=== PATIENT | female | born 1950 | race Hispanic/Latino ===

== ENCOUNTER 2017-09-16 09:19 | Outpatient (CLI) | payer MEDICARE, OTHER | END 2017-09-16 09:20 | disposition home or self-care (01) | LOC: BICMAMMO 09:19 | PROVIDERS: ATTEND Nurse Practitioner | DX: Z12.31 Encounter for screening mammogram for malignant neoplasm of breast (principal); Z13.820 Encounter for screening for osteoporosis; R10.2 Pelvic and perineal pain; N95.9 Unspecified menopausal and perimenopausal disorder; M81.0 Age-related osteoporosis without current pathological fracture | CPT/HCPCS: 76856; 77063; 77067; 77080 ==

== ENCOUNTER 2018-02-22 16:30 | Observation (INO) | payer MEDICARE, OTHER ==
[~2018-02-22 16:30] MED LIST: ISOVUE-370 76%-LOCM 1 ML ONE
[2018-02-22] MEDS ORDERED: Acetaminophen 500 MG TAB ONE (17:37)
[2018-02-22 17:55] LABS: #Basophils 0.1 thou/uL (0.0-0.2); #Eosinphils 0.3 thou/uL (0.0-0.7); #Lymphocytes 4.1 thou/uL (1.20-3.40); #Monocytes 1.3 thou/uL (0.11-0.59); %Basophils 0.4 % (0.0-1.0); %Eosinophils 1.4 % (0.0-10.0); %Lymphocytes 22.1 % (21.0-51.0); %Neutrophils 69.1 % (42.0-75.0); Hemoglobin 14.2 g/dL (12.0-16.0); Mean Corpuscular HGB CONC 35.5 g/dL (32.0-36.0); Mean Corpuscular Hemoglobin 32.1 pg (27.0-31.0); Mean Corpuscular Volume 90.4 fL (78.0-98.0); Mean Platelet Volume 9.7 fL (7.4-10.4); Platelet Count 232 thou/uL (130-400); RBC Distribution Width 12.3 % (11.5-14.5); Red Blood Cell (RBC) Count 4.44 mill/uL (4.20-5.40); White Blood Cell (WBC) Count 18.8 thou/uL (4.8-10.8)
[2018-02-22 18:16] LABS: ALT (SGPT) 9 U/L (8-55); AST (SGOT) 10 U/L (5-34); Albumin 4.2 g/dL (3.4-4.8); Alkaline Phosphatase 109 U/L (40-150); Anion Gap 14 mmol/L (10-20); BUN (Urea Nitrogen) 16 mg/dL (9.8-20.1); Bilirubin, Total 0.8 mg/dL (0.2-1.2); CRP (Inflammatory) 18.07 mg/dL (= or < 0.5); Calc. Creatinine Clearance 0 mL/min (70-130); Calcium 9.5 mg/dL (7.8-10.44); Carbon Dioxide 32 mmol/L (23-31); Chloride 101 mmol/L (98-107); Estimated GFR-MDRD 39; Globulin 3.2 g/dL (2.4-3.5); Glucose 117 mg/dL (80-115); Potassium 3.4 mmol/L (3.5-5.1); Protein, Total 7.4 g/dL (6.0-8.3); Sodium 144 mmol/L (136-145)
[2018-02-22] MEDS ORDERED: Dexamethasone 4 mg/ml Vial ONE (19:08)
[2018-02-22] MEDS ORDERED: Ampicillin/Sulbactam 3 GM in Sodium Chloride 0.9% 100 ML IVPB SCH (19:15)
[2018-02-22] MEDS ORDERED: HYDROcodone/Acetaminophen 5/325 mg Tablet PO PRN ×2 (20:24)
[2018-02-22] MEDS ORDERED: Ondansetron ODT 4 MG TAB SL PRN (20:24)
[2018-02-22] MEDS ORDERED: Ondansetron HCl/PF 4 MG/2 ML Vial IVP PRN (20:24)
[2018-02-22] MEDS ORDERED: Acetaminophen 325 MG TAB PO PRN (20:24)
[2018-02-22] MEDS ORDERED: Amlodipine 10 MG TAB PO SCH (21:15)
[2018-02-22] MEDS ORDERED: Simvastatin 20 MG TAB PO SCH (21:15)
[2018-02-22] MEDS ORDERED: Simvastatin 20 MG TAB PO ONE (21:15)
[2018-02-22 21:33] VITALS: BMI 22.0
[2018-02-23] MEDS: Ampicillin/Sulbactam 3 GM in Sodium Chloride 0.9% 100 ML IVPB SCH ×4 (01:15→20:03)
[2018-02-23] MEDS: Levothyroxine Sodium 75 MCG TAB PO SCH (04:53)
[2018-02-23] MEDS: Hydrochlorothiazide 25 MG TAB PO SCH (07:50)
--- NOTE | 2018-02-23 08:58 | CT ---
CONTRAST ENHANCED CT IMAGES OF SOFT TISSUE NECK 02/22/18 HISTORY: 68-year-old presents with right sided cheek swelling. Contrast enhanced CT images soft tissue neck is obtained. IV and oral contrast was given. The patient has numerous dental caries involving mandible and maxillary regions bilaterally. The right only remaining mandibular molar appears to have an area of lucency along its lateral aspect likely representing area of laterally positioned caries with possible inferiorly extending infection into the right perimandibular soft tissues. Findings compatible with right perimandibular cellulitis . No definite evidence of an abscess is seen. Moderate bilateral proximal ICA atherosclerotic plaques also seen. Some mild submandibular bilateral lymphadenopathy seen. There is also prominent bilateral jugulodigastric lymph nodes and mildly enlarg ed level III, IV as well as Va and Vb lymph node enlargement. IMPRESSION: Right perimandibular area of inflammatory change compatible with cellulitis without evidence of an ob vious abscess. POS: [facility]
--- NOTE | 2018-02-23 17:45 | CON ---
DATE OF CONSULTATION: 02/23/2018 REASON FOR CONSULTATION: Right mandibular inflammatory process. HISTORY OF PRESENT ILLNESS: A 68-year-old with a history of COPD and hypertension, chronic low back pain who has developed an inflammatory process right mandibular region. She had been to the emergenc y room and was admitted with suspicion of a mandibular abscess versus osteomyelitis associated with a periodontal inflammatory process. CT of neck was completed and it showed right perimandibular area of inflammatory change, but no obvious abscess. Currently, she feels much improved with IV ampicilli n sulbactam. No headaches, visual symptoms, no sore throat, odynophagia, dysphagia, no back pain, no dyspnea, cough or sputum production. No abdominal pain or diarrhea. No genitourinary symptoms. No joint symptoms. No neurological complaints. MEDICAL HISTORY: Includes COPD; chronic smoking; hypertension; low back pain, chronic; dyslipidemia; hypothyroidism. PAST SURGICAL HISTORY: None. ALLERGIES: None. CURRENT MEDICATIONS: Unasyn, hydrochlorothiazide, levofloxacin, Zocor, IV fluids. SOCIAL HISTORY: Still smoking, lives with family members. FAMILY HISTORY: Diabetes and hypertension. PHYSICAL EXAMINATION: VITAL SIGNS: T-max 98.3, blood pressure 120/56, pulse 65, respirations 20, O2 sat 95%. SKIN: Not remarkable. No erythema around the right mandibular area. Peripheral IV access. No Fole y catheter. No lymphadenopathy. HEENT: Ocular movements conjugate. Oral cavity a little bit of trismus noted, I was not able to ful ly visualize the contents of her oral cavity, particularly the right mandibular region. From the out side, there is a moderate swelling and moderate tenderness, but no erythema. According to family mem bers and the patient, there has been quite a bit of reduction in the previously noted swelling, right side. NECK: Supple. LUNGS: With symmetric clear breath sounds. HEART: S1, S2, regular rate. No back tenderness. No murmurs. ABDOMEN: Soft, not distended or tender. No ascites. No bladder distention. EXTREMITIES: No joint inflammatory activity. NEUROLOGIC: Nonfocal. LABORATORY DATA: White cell count 18,000, hemoglobin 14, platelets 232. Sodium 144, creatinine 1.36 . Liver profile normal. CRP is 18 and the soft tissue neck CT as noted above. ASSESSMENT: Chronic smoking with right mandibular inflammatory process likely due to periodontal inf lammatory process, may have osteomyelitis. Usual pathogens include the usual periodontal haley inclu ding microaerophilic Streptococci fusobacterium and other anaerobes. Continue Unasyn, switch to Augm entin for discharge planning and referral to a dentist for likely tooth removal. I would continue tr eatment for at least 3 weeks. She may have osteomyelitis to be determined by further imaging studies at the dentist. Could consider calling the dental consultation while she is in the hospital because I am afraid she is not going to have the resources to procure a dentist after discharge planning and this may lead to readmission.
[2018-02-23] MEDS ORDERED: HYDROcodone/Acetaminophen 5/325 mg Tablet PO PRN ×2 (19:12)
[2018-02-23] MEDS ORDERED: Ondansetron ODT 4 MG TAB SL PRN (19:13)
[2018-02-23] MEDS ORDERED: Ondansetron HCl/PF 4 MG/2 ML Vial IVP PRN (19:13)
[2018-02-23] MEDS ORDERED: Acetaminophen 325 MG TAB PO PRN (19:13)
[2018-02-23] MEDS: Amlodipine 10 MG TAB PO SCH (20:02)
[2018-02-23] MEDS: Simvastatin 20 MG TAB PO SCH (20:02)
[2018-02-24] MEDS: Ampicillin/Sulbactam 3 GM in Sodium Chloride 0.9% 100 ML IVPB SCH ×4 (02:31→19:46)
[2018-02-24 04:45] LABS: Anion Gap 11 mmol/L (10-20); BUN (Urea Nitrogen) 18 mg/dL (9.8-20.1); Calc. Creatinine Clearance 50 mL/min (70-130); Calcium 9.1 mg/dL (7.8-10.44); Carbon Dioxide 31 mmol/L (23-31); Chloride 104 mmol/L (98-107); Estimated GFR-MDRD 65; Glucose 139 mg/dL (80-115); Potassium 3.2 mmol/L (3.5-5.1); Sodium 143 mmol/L (136-145)
[2018-02-24] MEDS: Levothyroxine Sodium 75 MCG TAB PO SCH (05:06)
[2018-02-24 05:09] LABS: Band 4 % (5-11); Hemoglobin 12.2 g/dL (12.0-16.0); Lymphocytes 11 % (21-51); MDiff Complete? YES; Mean Corpuscular HGB CONC 34.9 g/dL (32.0-36.0); Mean Corpuscular Hemoglobin 31.6 pg (27.0-31.0); Mean Corpuscular Volume 90.6 fL (78.0-98.0); Mean Platelet Volume 10.1 fL (7.4-10.4); Myelocyte 1 % (0-0); Neutrophil 84 % (42-75); PLT Morphology Comment Appears Adequate; Platelet Count 221 thou/uL (130-400); RBC Distribution Width 12.1 % (11.5-14.5); Red Blood Cell (RBC) Count 3.85 mill/uL (4.20-5.40); White Blood Cell (WBC) Count 20.5 thou/uL (4.8-10.8)
[2018-02-24] MEDS: Hydrochlorothiazide 25 MG TAB PO SCH (09:06)
[2018-02-24] MEDS: Potassium Chloride 20 MEQ TAB PO SCH ×3 (09:47→21:54)
--- NOTE | 2018-02-24 16:06 | HP ---
DATE OF ADMISSION: 02/22/2018 CHIEF COMPLAINT: Swelling right lower jaw area. HISTORY OF PRESENT ILLNESS: Ms. Ferreira is a 68-year-old female with past medical history of hypertension, hyperlipidemia, hypothyroidism, notices swelling which got worse last night and has a lot of pain as well in the same area, but no fever. The patient did not have any nausea, vomiting, and no choking sensation, no shortness of breath, no difficulty swallowing. In the ER , the patient was evaluated and found to have possible cellulitis of right mandibular area from periodontal process. The patient was found to have leukocytosis in the ER, has been started on Unasyn and admitted for further evaluation and management. PAST MEDICAL HISTORY: 1. Hypertension. 2. Hyperlipidemia. 3. Hypothyroidism. 4. COPD. 5. Tobacco abuse. PAST SURGICAL HISTORY: None. CURRENT MEDICATIONS: The patient is on Zocor 20 mg daily, hydrochlorothiazide 25 mg daily, Synthroid 75 mcg q.i.d. ALLERGIES: NKDA. FAMILY HISTORY: Nothing of interest. SOCIAL HISTORY: The patient lives with family. She smokes one pack a day. No history of alcohol intake. REVIEW OF SYSTEMS: Cardiovascular: No chest pain. No shortness of breath. Respiratory: No fever or cough. Gastrointestinal: No nausea, vomiting, or abdominal pain. Genitourinary: No dysuria or hematuria. Central Nervous System: No headache, no dizziness. PHYSICAL EXAMINATION: GENERAL: The patient is alert, awake, oriented x2. VITAL SIGNS: Temperature 98, respiration 20, blood pressure 120/60. HEENT: Head is normocephalic, atraumatic. Pupils equal and reactive to light. Nasopharynx is pale and dry. Hard and soft palate, no lesions. Oral cavity: There is some swelling and redness in the right upper gum area. Right side of the face, there is swelling and also erythema in the right cheek and right mandibular area extending to the right side of the neck. SKIN: Skin turgor decreased. NECK: Supple. No JVD. LUNGS: Bilateral air entry present, no rales, no rhonchi. HEART: S1 and S2 regular. ABDOMEN: Soft. No distention, no tenderness. Normal bowel sounds present. CENTRAL NERVOUS SYSTEM: No focal deficit. LABORATORY DATA AND X-RAY FINDINGS: CBC shows WBC 18.8, hemoglobin 14, hematocrit 40, platelets 232. Metabolic panel: Sodium 144, potassium 3.4, chloride 101, CO2 of 32, creatinine 1.3, glucose 117. C-reactive protein 18. CT scan of the neck showed inflammatory process involving the right mandible Assessment 1. cellulitis,right mandible area and chek 2.periodontitis 3. Hypertension 4. tobacco abuse 5 copd Plan. 1.vitals q 4 hrs 2 activity as tolerated 3.allergies NKDA 4 Unasyn 3 gms IVPB q 6hrs [address] meyer 6 oral surgery consult [facility]
[2018-02-24] MEDS: Simvastatin 20 MG TAB PO SCH (20:17)
[2018-02-24] MEDS: Amlodipine 10 MG TAB PO SCH (20:17)
[2018-02-25] MEDS: Ampicillin/Sulbactam 3 GM in Sodium Chloride 0.9% 100 ML IVPB SCH ×2 (02:31→08:28)
[2018-02-25 04:29] LABS: #Basophils 0.1 thou/uL (0.0-0.2); #Eosinphils 0.1 thou/uL (0.0-0.7); #Lymphocytes 5.7 thou/uL (1.20-3.40); #Monocytes 0.8 thou/uL (0.11-0.59); #Neutrophils 5.7 thou/uL (1.40-6.50); %Basophils 0.6 % (0.0-1.0); %Eosinophils 0.9 % (0.0-10.0); %Lymphocytes 46.1 % (21.0-51.0); %Monocytes 6.6 % (0.0-10.0); %Neutrophils 45.9 % (42.0-75.0); Hemoglobin 12.5 g/dL (12.0-16.0); Mean Corpuscular HGB CONC 33.7 g/dL (32.0-36.0); Mean Corpuscular Hemoglobin 30.9 pg (27.0-31.0); Mean Corpuscular Volume 91.7 fL (78.0-98.0); Mean Platelet Volume 9.6 fL (7.4-10.4); Platelet Count 241 thou/uL (130-400); RBC Distribution Width 12.2 % (11.5-14.5); Red Blood Cell (RBC) Count 4.04 mill/uL (4.20-5.40); White Blood Cell (WBC) Count 12.4 thou/uL (4.8-10.8)
[2018-02-25 04:42] LABS: Anion Gap 12 mmol/L (10-20); BUN (Urea Nitrogen) 18 mg/dL (9.8-20.1); Calc. Creatinine Clearance 52 mL/min (70-130); Calcium 8.7 mg/dL (7.8-10.44); Carbon Dioxide 29 mmol/L (23-31); Chloride 106 mmol/L (98-107); Estimated GFR-MDRD 69; Glucose 107 mg/dL (80-115); Potassium 3.9 mmol/L (3.5-5.1); Sodium 143 mmol/L (136-145)
[2018-02-25] MEDS: Levothyroxine Sodium 75 MCG TAB PO SCH (05:24)
[2018-02-25] MEDS: Hydrochlorothiazide 25 MG TAB PO SCH (08:28)
[2018-02-25 08:49] VITALS: BP 122/59; TEMP 97.9
--- NOTE | 2018-02-26 00:35 | DIS ---
DATE OF ADMISSION: 02/22/2018 DATE OF DISCHARGE: 02/25/2018 ADMITTING DIAGNOSES: 1. Cellulitis right mandibular area and cheek. 2. Periodontitis. 3. Hypertension. 4. Tobacco abuse. 5. Chronic obstructive pulmonary disease by history. 6. Leukocytosis. FINAL DIAGNOSES: 1. Cellulitis, right mandible area improved and periodontitis. 2. Leukocytosis, improved. 3. Hypertension. 4. Tobacco abuse. 5. Chronic obstructive pulmonary disease. BRIEF SUMMARY OF HOSPITAL COURSE: Ms. Ferreira is a 68-year-old female admitted because of right cheek swelling and jaw swelling, started few days prior to admission. The patient was thought to have cellulitis in that area involving the right mandibular area, possible periodontitis. Patient was seen by Dr. Churchill for Infectious Disease, suggested to continue with antibiotic and suggested to do Oral Surgery consult. The patient's Oral Surgery suggested she needs tooth extraction as an outpatient. The patient to continue IV antibiotics and leukocytosis was monitored. His WBC count went up to 20,000, but following day it came down to 12,000. Patient slowly came down, erythema came down and pain also improved. The patient is being discharged. At the time of discharge, she was stable. Her vital signs were stable. Lungs clear. Abdomen soft no tenderness, bowel sound present. DISCHARGE MEDICATIONS: Amlodipine 10 mg daily, levothyroxine 75 mcg daily, hydrochlorothiazide 25 mg daily, simvastatin 10 mg at bedtime, Augmentin 875 b.i.d. for 2 weeks. FOLLOWUP: Patient will follow with oral surgery today. [facility]
== END 2018-02-25 10:38 | disposition home or self-care (01) ==
LOC: ERS 16:30 → 2SW 19:12
PROVIDERS: ADMIT Internal Medicine; ATTEND Internal Medicine
DX: L03.211 Cellulitis of face (principal); I10 Essential (primary) hypertension; J44.9 Chronic obstructive pulmonary disease, unspecified; D72.829 Elevated white blood cell count, unspecified; E78.5 Hyperlipidemia, unspecified; E03.9 Hypothyroidism, unspecified; F17.200 Nicotine dependence, unspecified, uncomplicated; Z79.899 Other long term (current) drug therapy
CPT/HCPCS: 70491; 80048 ×2; 80053; 85025 ×3; 85652; 86140; 96365; 96366 ×3; 96375; 99285; G0378 ×2; 36415; A4216; J0295; J1100; J7050

== ENCOUNTER 2018-03-17 07:34 | Outpatient (CLI) | payer MEDICARE, MEDICAID ==
[2018-03-17] MEDS ORDERED: ISOVUE-370 76%-LOCM 1 ML ONE (12:55)
== END 2018-03-17 07:35 | disposition home or self-care (01) ==
LOC: BICCT 07:34
PROVIDERS: ATTEND Urology
DX: R31.29 Other microscopic hematuria (principal); N28.9 Disorder of kidney and ureter, unspecified; N28.1 Cyst of kidney, acquired; N26.1 Atrophy of kidney (terminal)
CPT/HCPCS: 74178

== ENCOUNTER 2018-07-14 14:42 | Outpatient (CLI) | payer MEDICARE, MEDICAID ==
--- NOTE | 2018-07-14 18:13 | RAD ---
PARANASAL SINUSES THREE VIEWS: INDICATIONS: COPD. Cough. FINDINGS: The frontal sinus is patent. No discrete fluid level of either maxillary sinus. No significant opac ity at the ethmoid sinus. The mastoid air cells are grossly patent. IMPRESSION: No definite acute fluid level of the imaged paranasal sinuses. POS: [facility]
--- NOTE | 2018-07-14 18:13 | RAD ---
CHEST FRONTAL AND LATERAL IMAGIN07/14/2018 HISTORY: COPD and cough. COMPARISON: 07/07/2014 FINDINGS: No pneumothorax, pleural fluid, focal consolidation, or alveolar edema. The osseous structures demon strate an age indeterminate fracture of the L2 vertebral body, present on prior 03/17/2018 CT. There is atherosclerotic calcification of the abdominal aorta. IMPRESSION: No acute findings. POS: [facility]
== END 2018-07-14 14:43 | disposition home or self-care (01) ==
LOC: BICRAD 14:42
PROVIDERS: ATTEND Internal Medicine
DX: J44.9 Chronic obstructive pulmonary disease, unspecified (principal); R05 Cough
CPT/HCPCS: 70220; 71046

== ENCOUNTER 2018-09-22 08:51 | Outpatient (CLI) | payer MEDICARE, MEDICAID ==
--- NOTE | 2018-09-22 11:01 | ULT ---
ABDOMINAL AORTIC ANEURYSM SCREENING ULTRASOUND: HISTORY: Screening. R09.89, abdominal bruit. COMPARISON: None. FINDINGS: Real-time, dipo-scale, color, and spectral analysis of the abdominal aorta was performed. FINDINGS: The proximal aorta measures up to 1.9 cm. The mid aorta measures up to 1.4 cm. The distal aorta chato sures up to 1.2 cm. No aneurysmal dilatation. The iliac vessels are patent. IMPRESSION: No aneurysmal dilatation of the aorta. POS: [facility]
== END 2018-09-22 08:52 | disposition home or self-care (01) ==
LOC: BICULT 08:51
PROVIDERS: ATTEND Internal Medicine
DX: R09.89 Other specified symptoms and signs involving the circulatory and respiratory systems (principal)
CPT/HCPCS: 76706

== ENCOUNTER 2018-12-29 13:28 | Outpatient (CLI) | payer MEDICARE, MEDICAID ==
--- NOTE | 2018-12-29 14:28 | MMO ---
Bilateral MAMMO Bilat Screen [facility]. CLINICAL HISTORY: Patient is 68 years old and is seen for screening. The patient has no family history of breast cancer. The patient has no personal history of cancer. VIEWS: The views performed were: bilateral craniocaudal with tomosynthesis and bilateral mediolateral oblique with tomosynthesis. FILMS COMPARED: The present examination has been compared to prior imaging studies performed at [facility] on 04/08/2008, 05/23/2012 and 09/16/2017. MAMMOGRAM FINDINGS: There are scattered fibroglandular densities. There are vascular calcifications seen in both breasts. There are no suspicious masses, suspicious calcifications, or new areas of architectural distortion. IMPRESSION: A ROUTINE FOLLOW-UP MAMMOGRAM IN 1 YEAR IS RECOMMENDED. THE RESULTS OF THIS EXAM WERE SENT TO THE PATIENT. ACR BI-RADS Category 2 - Benign finding MAMMOGRAPHY NOTE: 1. A negative mammogram report should not delay a biopsy if a dominant of clinically suspicious mass is present. 2. Approximately 10% to 15% of breast cancers are not detected by mammography. 3. Adenosis and dense breasts may obscure an underlying neoplasm.
== END 2018-12-29 13:29 | disposition home or self-care (01) ==
LOC: BICMAMMO 13:28
PROVIDERS: ATTEND Internal Medicine
DX: Z12.31 Encounter for screening mammogram for malignant neoplasm of breast (principal)
CPT/HCPCS: 77063; 77067

== ENCOUNTER 2019-06-26 08:50 | Outpatient (CLI) | payer MEDICARE, MEDICAID ==
--- NOTE | 2019-06-26 11:49 | RAD ---
Lumbar spine 4 views HISTORY: Low back pain. COMPARISON: 03/08/2017. FINDINGS: There are 5 lumbar type vertebrae. Pedicles are intact. Pars interarticularis maintained. There is now approximately 70% compression of the central portion of the L2 vertebral body with disco ntinuity of the endplates. Minimal retropulsion. Other vertebral body heights maintained. Minimal retrolisthesis at the L2-3 level. Osteophytosis thro ughout the lower facets. Prominent calcification in the arterial structures. IMPRESSION: Severe compression L2 vertebral body. It has occurred over the two-year interval, althoug h exact age is indeterminate.. Minimal retropulsion. Degenerative changes lower lumbar spine. Atherosclerosis.
== END 2019-06-26 08:51 | disposition home or self-care (01) ==
LOC: BICRAD 08:50
PROVIDERS: ATTEND Internal Medicine
DX: M54.5 Low back pain (principal); M47.816 Spondylosis without myelopathy or radiculopathy, lumbar region
CPT/HCPCS: 72110

== ENCOUNTER 2021-02-01 07:58 | Emergency (ER) | payer MEDICARE, MEDICAID ==
[2021-02-01] MEDS ORDERED: Meclizine HCl 25 MG TAB ONE (08:29)
[2021-02-01 08:38] LABS: #Basophils 0.1 thou/uL (0.0-0.2); #Eosinphils 0.4 thou/uL (0.0-0.7); #Lymphocytes 3.7 thou/uL (1.20-3.40); #Monocytes 0.5 thou/uL (0.11-0.59); #Neutrophils 5.4 thou/uL (1.40-6.50); %Basophils 1.2 % (0.0-1.0); %Eosinophils 3.9 % (0.0-10.0); %Lymphocytes 36.9 % (21.0-51.0); %Monocytes 4.9 % (0.0-10.0); Hemoglobin 14.4 g/dL (12.0-16.0); Mean Corpuscular HGB CONC 31.7 g/dL (32.0-36.0); Mean Corpuscular Hemoglobin 30.3 pg (27.0-31.0); Mean Corpuscular Volume 95.5 fL (78.0-98.0); Platelet Count 228 thou/uL (130-400); RBC Distribution Width 12.5 % (11.5-14.5); Red Blood Cell (RBC) Count 4.74 mill/uL (4.20-5.40); White Blood Cell (WBC) Count 10.1 thou/uL (4.8-10.8)
[2021-02-01 08:51] LABS: ALT (SGPT) 9 U/L (8-55); AST (SGOT) 12 U/L (5-34); Albumin 4.5 g/dL (3.4-4.8); Alkaline Phosphatase 134 U/L (40-110); Anion Gap 12 mmol/L (10-20); BUN (Urea Nitrogen) 8 mg/dL (9.8-20.1); Bilirubin, Total 0.7 mg/dL (0.2-1.2); Calc. Creatinine Clearance 0 mL/min (70-130); Calcium 9.2 mg/dL (7.8-10.44); Carbon Dioxide 28 mmol/L (23-31); Chloride 105 mmol/L (98-107); Globulin 3.1 g/dL (2.4-3.5); Glucose 112 mg/dL (83-110); Potassium 3.4 mmol/L (3.5-5.1); Protein, Total 7.6 g/dL (5.8-8.1); Sodium 142 mmol/L (136-145)
[2021-02-01 10:27] LABS: Bacteria/HPF None Seen HPF (None Seen); Bilirubin Negative (Negative); Blood, Urine Negative (Negative); Clarity Clear (Clear); Glucose, Urine (Dipstick) Normal (Negative); Ketone, Urine Negative (Negative); Leukocyte 25 Leu/uL (Negative); Nitrite Negative (Negative); Protein, Urine (Dipstick) Negative (Neg-Trace); RBC/HPF 0-3 HPF (0-3); Specific Gravity, Urine 1.011 (1.002-1.036); Squamous Epithelial 0-3 HPF (0-3); Urobilinogen Normal mg/dL (Less than 2); WBC/HPF 0-3 HPF (0-3)
== END 2021-02-01 11:48 | disposition home or self-care (01) ==
LOC: ERS 07:58
DX: H81.13 Benign paroxysmal vertigo, bilateral (principal); E03.9 Hypothyroidism, unspecified; E78.5 Hyperlipidemia, unspecified; E78.00 Pure hypercholesterolemia, unspecified; I10 Essential (primary) hypertension; J44.9 Chronic obstructive pulmonary disease, unspecified; F17.210 Nicotine dependence, cigarettes, uncomplicated; Z79.899 Other long term (current) drug therapy
CPT/HCPCS: 70450; 71045; 80053; 81003; 81015; 84484; 85025; 93005

== ENCOUNTER 2022-01-23 23:02 | Emergency (ER) | payer MEDICARE, OTHER ==
[2022-01-24 00:08] LABS: #Basophils 0.1 thou/uL (0.0-0.2); #Eosinphils 0.5 thou/uL (0.0-0.7); #Lymphocytes 4.7 thou/uL (1.20-3.40); #Monocytes 0.8 thou/uL (0.11-0.59); #Neutrophils 5.6 thou/uL (1.40-6.50); %Basophils 0.9 % (0.0-1.0); %Eosinophils 4.6 % (0.0-10.0); %Monocytes 6.6 % (0.0-10.0); %Neutrophils 47.9 % (42.0-75.0); Hemoglobin 11.8 g/dL (12.0-16.0); Mean Corpuscular HGB CONC 32.9 g/dL (32.0-36.0); Mean Corpuscular Hemoglobin 30.9 pg (27.0-31.0); Mean Corpuscular Volume 93.7 fL (78.0-98.0); Mean Platelet Volume 9.6 fL (7.4-10.4); Platelet Count 235 thou/uL (130-400); RBC Distribution Width 12.7 % (11.5-14.5); Red Blood Cell (RBC) Count 3.84 mill/uL (4.20-5.40); White Blood Cell (WBC) Count 11.7 thou/uL (4.8-10.8)
[2022-01-24 00:21] LABS: ALT (SGPT) 7 U/L (8-55); AST (SGOT) 12 U/L (5-34); Alkaline Phosphatase 112 U/L (40-110); Anion Gap 11 mmol/L (10-20); BUN (Urea Nitrogen) 9 mg/dL (9.8-20.1); Bilirubin, Total 0.4 mg/dL (0.2-1.2); Calc. Creatinine Clearance 0 mL/min (70-130); Carbon Dioxide 27 mmol/L (23-31); Chloride 106 mmol/L (98-107); Globulin 2.8 g/dL (2.4-3.5); Glucose 91 mg/dL (83-110); Potassium 3.6 mmol/L (3.5-5.1); Protein, Total 6.8 g/dL (5.8-8.1); Sodium 140 mmol/L (136-145)
[2022-01-24 02:34] LABS: Troponin I Less than 0.010 ng/mL (< 0.028)
== END 2022-01-24 03:06 | disposition home or self-care (01) ==
LOC: ERS 23:02
DX: R07.89 Other chest pain (principal); E03.9 Hypothyroidism, unspecified; E78.5 Hyperlipidemia, unspecified; I10 Essential (primary) hypertension; J44.9 Chronic obstructive pulmonary disease, unspecified; F17.210 Nicotine dependence, cigarettes, uncomplicated; Z79.899 Other long term (current) drug therapy
CPT/HCPCS: 36415; 71046; 80053; 84484; 85025; 93005

== ENCOUNTER 2022-05-16 09:58 | Outpatient (CLI) | payer OTHER | END 2022-05-16 09:59 | disposition home or self-care (01) | LOC: BICMAMMO 09:58 | PROVIDERS: ATTEND Nurse Practitioner Family | DX: Z12.31 Encounter for screening mammogram for malignant neoplasm of breast (principal) | CPT/HCPCS: 77063; 77067 ==

== ENCOUNTER 2022-08-19 19:27 | Inpatient (IN) | payer OTHER ==
[2022-08-19] MEDS ORDERED: Fentanyl 100 MCG/2 ML VIAL ONE (19:39)
[2022-08-19 20:19] LABS: #Basophils 0.1 thou/uL (0.0-0.2); #Eosinphils 0.5 thou/uL (0.0-0.7); #Lymphocytes 4.8 thou/uL (1.20-3.40); #Monocytes 1.2 thou/uL (0.11-0.59); #Neutrophils 11.1 thou/uL (1.40-6.50); %Basophils 0.3 % (0.0-1.0); %Eosinophils 2.7 % (0.0-10.0); %Lymphocytes 27.2 % (21.0-51.0); %Monocytes 6.8 % (0.0-10.0); Mean Corpuscular HGB CONC 33.1 g/dL (32.0-36.0); Mean Corpuscular Hemoglobin 29.5 pg (27.0-31.0); Mean Corpuscular Volume 89.1 fl (78.0-98.0); Mean Platelet Volume 10.3 fL (7.4-10.4); Platelet Count 269 10x3/uL (130-400); RBC Distribution Width 12.2 % (11.5-14.5); Red Blood Cell (RBC) Count 4.07 mill/uL (4.20-5.40); White Blood Cell (WBC) Count 17.6 10x3/uL (4.8-10.8)
[2022-08-19 20:40] LABS: ALT (SGPT) 8 U/L (8-55); AST (SGOT) 13 U/L (5-34); Albumin 3.8 g/dL (3.4-4.8); Alkaline Phosphatase 154 U/L (40-110); Anion Gap 12 mmol/L (10-20); BUN (Urea Nitrogen) 7 mg/dL (9.8-20.1); Bilirubin, Total 0.2 mg/dL (0.2-1.2); Calc. Creatinine Clearance 0 mL/min (70-130); Calcium 8.8 mg/dL (7.8-10.44); Carbon Dioxide 27 mmol/L (23-31); Chloride 105 mmol/L (98-107); Estimated GFR 84; Globulin 2.9 g/dL (2.4-3.5); Glucose 182 mg/dL (83-110); Potassium 3.8 mmol/L (3.5-5.1); Protein, Total 6.7 g/dL (5.8-8.1); Sodium 140 mmol/L (136-145)
[2022-08-19] MEDS ORDERED: Ondansetron PF 4 MG/2 ML Vial IVP PRN (20:46)
[2022-08-19] MEDS ORDERED: hydrALAZINE 20 MG/ML VIAL SLOW IVP PRN (20:46)
[2022-08-19] MEDS ORDERED: Ipratropium/Albuterol 3 ML NEB NEB PRN ×2 (20:46→20:50)
[2022-08-19] MEDS ORDERED: Cyclobenzaprine 10 MG TAB PO PRN (20:50)
[2022-08-19] MEDS ORDERED: Sodium Chloride 0.9% 1,000 ML IV SCH (21:00)
[2022-08-19] MEDS ORDERED: Acetaminophen 325 MG TAB PO SCH (21:00)
[2022-08-19] MEDS ORDERED: Morphine 4 MG/ML VIAL ONE (21:06)
[2022-08-19] MEDS ORDERED: Ondansetron PF 4 MG/2 ML Vial ONE (21:06)
[2022-08-19 23:28] VITALS: BMI 19.0
[2022-08-19] MEDS: Atorvastatin Calcium 10 MG TAB PO SCH (23:31)
[2022-08-19] MEDS: Acetaminophen 325 MG TAB PO SCH (23:38)
[2022-08-19] MEDS: Famotidine/PF 20 mg/2ml Vial SLOW IVP SCH (23:40)
[2022-08-19] MEDS: Senokot S 8.6-50 MG TAB PO SCH (23:40)
[2022-08-19] MEDS: Acetaminophen/Codeine 30-300mg Tablet PO SCH (23:41)
[2022-08-20] MEDS: Morphine 2 MG/ML VIAL SLOW IVP PRN ×3 (00:50→21:09)
[2022-08-20 03:21] LABS: SARS-CoV-2 NAA Rapid Test Not Detected (NotDetected)
[2022-08-20 04:18] LABS: Bacteria/HPF None Seen HPF (None Seen); Bilirubin Negative (Negative); Blood, Urine Negative (Negative); CAUTI Indications for Culture Dysuria,urgency,freq; Clarity Clear (Clear); Glucose, Urine (Dipstick) Normal (Negative); Ketone, Urine Negative (Negative); Leukocyte Negative Leu/uL (Negative); Nitrite Negative (Negative); Protein, Urine (Dipstick) Negative (Neg-Trace); RBC/HPF 0-3 HPF (0-3); Specific Gravity, Urine 1.008 (1.002-1.036); Squamous Epithelial None Seen HPF (0-3); Urobilinogen Normal mg/dL (Less than 2); WBC/HPF 0-3 HPF (0-3); pH, Urine 6.5 (5.0-9.0)
[2022-08-20 04:21] LABS: Urine Culture Reflex No No
[2022-08-20] MEDS: Acetaminophen 325 MG TAB PO SCH ×3 (05:10→18:26)
[2022-08-20] MEDS: Acetaminophen/Codeine 30-300mg Tablet PO SCH ×3 (05:10→18:26)
[2022-08-20] MEDS: Levothyroxine Sodium 75 MCG TAB PO SCH (05:10)
[2022-08-20] MEDS ORDERED: CEFAZOLIN 2 GM in Sodium Chloride 0.9% 100 ML IVPB SCH (07:45)
[2022-08-20 08:00] LABS: Prothrombin Time 13.5 sec (12.0-14.7)
[2022-08-20 08:01] LABS: PTT 31.3 sec (22.9-36.1)
[2022-08-20] MEDS: Famotidine/PF 20 mg/2ml Vial SLOW IVP SCH ×2 (08:53→21:09)
[2022-08-20] MEDS: Polyethylene Glycol 3350 17 GM Packet PO SCH (08:53)
[2022-08-20] MEDS: Senokot S 8.6-50 MG TAB PO SCH ×2 (08:53→21:09)
[2022-08-20] MEDS ORDERED: Fentanyl 250 MCG/5 ML VIAL ONE (12:54)
[2022-08-20] MEDS ORDERED: Sodium Chloride 0.9% 100 ML ONE (12:59)
[2022-08-20] MEDS ORDERED: CEFAZOLIN 2 GM VIAL ONE (12:59)
[2022-08-20] MEDS ORDERED: NEOSTIGMINE 3 MG/3 ML SYR 3 MG/3 ML SYRINGE ONE (13:07)
[2022-08-20] MEDS ORDERED: Ondansetron PF 4 MG/2 ML Vial ONE (13:07)
[2022-08-20] MEDS ORDERED: Rocuronium Bromide 10 MG/ML (10ML VIAL) ONE (13:07)
[2022-08-20] MEDS ORDERED: Dexamethasone 20 MG/5 ML VIAL ONE (13:07)
[2022-08-20] MEDS ORDERED: PROPOFOL 200 MG/20 ML VIAL ONE (13:07)
[2022-08-20] MEDS ORDERED: Lidocaine 1% PF 5 ML VIAL ONE (13:07)
[2022-08-20] MEDS ORDERED: Glycopyrrolate 0.2 MG/ML 5 ML SYRINGE ONE (13:07)
[2022-08-20] MEDS ORDERED: SUGAMMADEX SODIUM 200 MG/2 ML VIAL ONE (13:47)
[2022-08-20] MEDS ORDERED: Promethazine HCl 25 MG/ML VIAL IVPB PRN (14:20)
[2022-08-20] MEDS ORDERED: Ondansetron HCl/PF 4 MG/2 ML Vial IVP PRN (14:20)
[2022-08-20] MEDS ORDERED: Promethazine HCl 25 MG/ML VIAL IM PRN (14:20)
[2022-08-20] MEDS ORDERED: Promethazine HCl 25 MG/ML VIAL ONE ×2 (14:47→15:04)
[2022-08-20] MEDS ORDERED: Fentanyl 100 MCG/2 ML VIAL ONE (15:05)
[2022-08-20] MEDS: CEFAZOLIN 2 GM in Sodium Chloride 0.9% 100 ML IVPB SCH (21:08)
[2022-08-20] MEDS: Atorvastatin Calcium 10 MG TAB PO SCH (21:09)
[2022-08-21] MEDS: Acetaminophen 325 MG TAB PO SCH ×4 (00:40→17:38)
[2022-08-21] MEDS: Acetaminophen/Codeine 30-300mg Tablet PO SCH ×4 (00:41→17:37)
[2022-08-21] MEDS: CEFAZOLIN 2 GM in Sodium Chloride 0.9% 100 ML IVPB SCH (05:54)
[2022-08-21] MEDS: Levothyroxine Sodium 75 MCG TAB PO SCH (05:54)
[2022-08-21] MEDS: Polyethylene Glycol 3350 17 GM Packet PO SCH (08:46)
[2022-08-21] MEDS: Famotidine/PF 20 mg/2ml Vial SLOW IVP SCH (08:46)
[2022-08-21] MEDS: Senokot S 8.6-50 MG TAB PO SCH ×2 (08:46→21:27)
[2022-08-21] MEDS: Morphine 2 MG/ML VIAL SLOW IVP PRN (09:14)
[2022-08-21 09:56] LABS: #Lymphocytes 1.6 thou/uL (1.20-3.40); #Monocytes 0.7 thou/uL (0.11-0.59); #Neutrophils 14.2 thou/uL (1.40-6.50); %Eosinophils 0.1 % (0.0-10.0); %Lymphocytes 9.8 % (21.0-51.0); %Neutrophils 86.2 % (42.0-75.0); Hemoglobin 10.1 g/dL (12.0-16.0); Mean Corpuscular HGB CONC 32.9 g/dL (32.0-36.0); Mean Corpuscular Hemoglobin 29.6 pg (27.0-31.0); Mean Corpuscular Volume 90.1 fl (78.0-98.0); Mean Platelet Volume 10.1 fL (7.4-10.4); Platelet Count 207 10x3/uL (130-400); RBC Distribution Width 12.1 % (11.5-14.5); Red Blood Cell (RBC) Count 3.42 mill/uL (4.20-5.40); White Blood Cell (WBC) Count 16.4 10x3/uL (4.8-10.8)
[2022-08-21 10:16] LABS: Anion Gap 15 mmol/L (10-20); BUN (Urea Nitrogen) 10 mg/dL (9.8-20.1); Calc. Creatinine Clearance 44 mL/min (70-130); Calcium 8.6 mg/dL (7.8-10.44); Carbon Dioxide 23 mmol/L (23-31); Chloride 106 mmol/L (98-107); Estimated GFR 79; Glucose 180 mg/dL (83-110); Phosphorus 4.6 mg/dL (2.3-4.7); Potassium 3.7 mmol/L (3.5-5.1); Sodium 140 mmol/L (136-145)
[2022-08-21] MEDS ORDERED: Potassium Chloride 20 MEQ TAB PO SCH (12:00)
[2022-08-21] MEDS: Aspirin 81 mg Enteric Coated Tablet PO SCH (21:27)
[2022-08-21] MEDS: Atorvastatin Calcium 10 MG TAB PO SCH (21:27)
[2022-08-22] MEDS: Acetaminophen/Codeine 30-300mg Tablet PO SCH ×4 (00:07→17:35)
[2022-08-22] MEDS: Acetaminophen 325 MG TAB PO SCH ×4 (00:07→17:35)
[2022-08-22] MEDS: Levothyroxine Sodium 75 MCG TAB PO SCH (05:36)
[2022-08-22 06:40] LABS: #Lymphocytes 3.2 thou/uL (1.20-3.40); #Monocytes 1.2 thou/uL (0.11-0.59); #Neutrophils 13.5 thou/uL (1.40-6.50); %Basophils 0.1 % (0.0-1.0); %Eosinophils 0.1 % (0.0-10.0); %Monocytes 6.8 % (0.0-10.0); Hemoglobin 9.3 g/dL (12.0-16.0); Mean Corpuscular HGB CONC 33.5 g/dL (32.0-36.0); Mean Corpuscular Hemoglobin 30.4 pg (27.0-31.0); Mean Corpuscular Volume 90.8 fl (78.0-98.0); Mean Platelet Volume 10.5 fL (7.4-10.4); Platelet Count 226 10x3/uL (130-400); RBC Distribution Width 12.2 % (11.5-14.5); Red Blood Cell (RBC) Count 3.06 mill/uL (4.20-5.40)
[2022-08-22 07:10] LABS: Anion Gap 13 mmol/L (10-20); BUN (Urea Nitrogen) 14 mg/dL (9.8-20.1); Calc. Creatinine Clearance 49 mL/min (70-130); Calcium 8.6 mg/dL (7.8-10.44); Carbon Dioxide 27 mmol/L (23-31); Chloride 106 mmol/L (98-107); Estimated GFR 88; Glucose 100 mg/dL (83-110); Magnesium 2.3 mg/dL (1.6-2.6); Phosphorus 3.6 mg/dL (2.3-4.7); Sodium 142 mmol/L (136-145)
[2022-08-22] MEDS: Senokot S 8.6-50 MG TAB PO SCH ×2 (08:08→20:53)
[2022-08-22] MEDS: Aspirin 81 mg Enteric Coated Tablet PO SCH ×2 (08:08→20:53)
[2022-08-22] MEDS: Polyethylene Glycol 3350 17 GM Packet PO SCH (08:08)
[2022-08-22] MEDS ORDERED: PHOS-NAK 1 PKT PACK PO SCH (09:15)
[2022-08-22] MEDS ORDERED: Atorvastatin Calcium 40 MG TAB PO SCH (21:00)
[2022-08-23] MEDS: Acetaminophen 325 MG TAB PO SCH ×4 (01:00→17:06)
[2022-08-23] MEDS: Acetaminophen/Codeine 30-300mg Tablet PO SCH ×4 (01:00→17:05)
[2022-08-23] MEDS: Levothyroxine Sodium 75 MCG TAB PO SCH (05:16)
[2022-08-23 06:50] LABS: #Eosinphils 0.2 thou/uL (0.0-0.7); #Lymphocytes 4.9 thou/uL (1.20-3.40); #Neutrophils 6.7 thou/uL (1.40-6.50); %Basophils 0.2 % (0.0-1.0); %Eosinophils 1.3 % (0.0-10.0); %Lymphocytes 38.2 % (21.0-51.0); %Monocytes 7.6 % (0.0-10.0); %Neutrophils 52.7 % (42.0-75.0); Hemoglobin 8.9 g/dL (12.0-16.0); Mean Corpuscular HGB CONC 32.5 g/dL (32.0-36.0); Mean Corpuscular Hemoglobin 29.2 pg (27.0-31.0); Mean Corpuscular Volume 89.9 fl (78.0-98.0); Mean Platelet Volume 10.1 fL (7.4-10.4); Platelet Count 231 10x3/uL (130-400); RBC Distribution Width 12.2 % (11.5-14.5); Red Blood Cell (RBC) Count 3.04 mill/uL (4.20-5.40); White Blood Cell (WBC) Count 12.7 10x3/uL (4.8-10.8)
[2022-08-23] MEDS: Polyethylene Glycol 3350 17 GM Packet PO SCH (08:09)
[2022-08-23] MEDS: Aspirin 81 mg Enteric Coated Tablet PO SCH (08:09)
[2022-08-23] MEDS: Senokot S 8.6-50 MG TAB PO SCH (08:09)
[2022-08-23] MEDS ORDERED: Amlodipine 10 MG TAB PO SCH (09:00)
[2022-08-23 16:32] VITALS: BP 133/54; TEMP 97.9
== END 2022-08-23 17:30 | disposition home or self-care (01) | DRG 481 ==
LOC: ERS 19:27 → SURG A 20:50
PROVIDERS: ADMIT Surgery; ATTEND Surgery
PROC: 0QS604Z Reposition Right Upper Femur with Internal Fixation Device, Open Approach (ICD-10-PCS; principal; 2022-08-20)
DX: S72.141A Displaced intertrochanteric fracture of right femur, initial encounter for closed fracture (principal); I50.32 Chronic diastolic (congestive) heart failure; Z20.822 Contact with and (suspected) exposure to COVID-19; E78.5 Hyperlipidemia, unspecified; E03.9 Hypothyroidism, unspecified; J44.9 Chronic obstructive pulmonary disease, unspecified; F17.210 Nicotine dependence, cigarettes, uncomplicated; I11.0 Hypertensive heart disease with heart failure; D72.829 Elevated white blood cell count, unspecified; W01.0XXA Fall on same level from slipping, tripping and stumbling without subsequent striking against object, initial encounter; Y92.009 Unspecified place in unspecified non-institutional (private) residence as the place of occurrence of the external cause; Z79.899 Other long term (current) drug therapy; Z79.890 Hormone replacement therapy
CPT/HCPCS: 36415; 71045; 80048; 80053; 81001; 83735; 84100; 84484; 85025; 85610; 85730; 86850; 86900; 86901; 93005; 94760; 96374; 96375; C1713; J1100; J2270; J2272; J2405; J2550; J2704; J3010; J3490; J7050; S0028; U0002

== ENCOUNTER 2023-09-10 23:04 | Emergency (ER) | payer OTHER, MEDICARE ==
[2023-09-10] MEDS ORDERED: Ipratropium/Albuterol 3 ML NEB ONE (23:21)
[2023-09-10] MEDS ORDERED: methylPREDNISolone Sod Succ/PF 125 MG/2 ML VIAL ONE (23:24)
[2023-09-10 23:59] LABS: Hematocrit 37.2 % (36.0-47.0); Hemoglobin 12.7 g/dL (12.0-16.0); Mean Corpuscular HGB CONC 34.1 g/dL (32.0-36.0); Mean Corpuscular Hemoglobin 30.9 pg (27.0-31.0); Mean Corpuscular Volume 90.5 fl (78.0-98.0); Mean Platelet Volume 12.9 fL (7.4-10.4); Platelet Count 242 10x3/uL (130-400); RBC Distribution Width 16.7 % (11.5-14.5); Red Blood Cell (RBC) Count 4.11 mill/uL (4.20-5.40); White Blood Cell (WBC) Count 11.9 10x3/uL (4.8-10.8)
[2023-09-11 00:14] LABS: Delete Auto Diff?? YES; Manual Diff?? YES
[2023-09-11 00:20] LABS: ALT (SGPT) 23 U/L (8-55); AST (SGOT) 39 U/L (5-34); Albumin 4.7 g/dL (3.4-4.8); Alkaline Phosphatase 171 U/L (40-110); Anion Gap 17 mmol/L (10-20); BUN (Urea Nitrogen) 9 mg/dL (9.8-20.1); Bilirubin, Total 0.9 mg/dL (0.2-1.2); Calc. Creatinine Clearance 0 mL/min (70-130); Calcium 9.6 mg/dL (7.8-10.44); Carbon Dioxide 23 mmol/L (23-31); Chloride 105 mmol/L (98-107); Estimated GFR 49; Globulin 3.6 g/dL (2.4-3.5); Glucose 88 mg/dL (83-110); Magnesium 2.6 mg/dL (1.6-2.6); Potassium 3.8 mmol/L (3.5-5.1); Protein, Total 8.3 g/dL (5.8-8.1); Sodium 141 mmol/L (136-145)
[2023-09-11 00:31] LABS: Troponin I Less than 0.010 ng/mL (< 0.028)
[2023-09-11 00:42] LABS: CellaVision Operator ID LAB.KB; Eosinophils 2 % (0-10); Lymphocytes 44 % (21-51); Monocytes 3 % (0-10); Neutrophil 37 % (42-75); Platelet Adequacy Comment Platelets Normal; RBC Morphology Within Normal Limits; Reactive Lymphocytes 11 % (0-10); Total Cell Count 100
[2023-09-11 01:18] LABS: Bacteria/HPF None Seen HPF (None Seen); Bilirubin Negative (Negative); Blood, Urine Negative (Negative); CAUTI Indications for Culture Fever or rigors; Clarity Clear (Clear); Glucose, Urine (Dipstick) Normal (Negative); Ketone, Urine Negative (Negative); Leukocyte Negative Leu/uL (Negative); Nitrite Negative (Negative); Protein, Urine (Dipstick) Negative (Neg-Trace); RBC/HPF 0-3 HPF (0-3); Specific Gravity, Urine 1.007 (1.002-1.036); Squamous Epithelial 0-3 HPF (0-3); Urobilinogen Normal mg/dL (Less than 2); WBC/HPF 0-3 HPF (0-3); pH, Urine 6.5 (5.0-9.0)
[2023-09-11 01:31] LABS: Urine Culture Reflex No No
[2023-09-11 03:28] LABS: SARS-CoV-2 NAA Rapid Test Not Detected (NotDetected)
[2023-09-11] MEDS ORDERED: Iopamidol 370 76% 100 ML VIAL ONE (09:22)
== END 2023-09-11 03:09 | disposition home or self-care (01) ==
LOC: ERS 23:04
DX: J44.1 Chronic obstructive pulmonary disease with (acute) exacerbation (principal); I10 Essential (primary) hypertension; E03.9 Hypothyroidism, unspecified; E78.5 Hyperlipidemia, unspecified; F17.210 Nicotine dependence, cigarettes, uncomplicated; Z79.899 Other long term (current) drug therapy
CPT/HCPCS: 71045; 71275; 80053; 81001; 83735; 83880; 84484; 85025; 85379; 93005; 94760; 96374; J2930; J7620

== ENCOUNTER 2024-01-30 14:19 | Outpatient (CLI) | payer OTHER | END 2024-01-30 14:20 | disposition home or self-care (01) | LOC: BICMAMMO 14:19 | PROVIDERS: ATTEND Nurse Practitioner Family | DX: Z12.31 Encounter for screening mammogram for malignant neoplasm of breast (principal); Z13.820 Encounter for screening for osteoporosis; Z78.0 Asymptomatic menopausal state; M81.0 Age-related osteoporosis without current pathological fracture | CPT/HCPCS: 77063; 77067; 77080 ==

== ENCOUNTER 2024-06-17 03:18 | Inpatient (IN) | payer OTHER ==
[2024-06-17 04:33] LABS: #Basophils 0.09 10x3/uL (0.0-0.2); %Basophils 0.7 % (0.0-1.0); %Lymphocytes 36.5 % (21.0-51.0); %Monocytes 5.8 % (0.0-10.0); %Neutrophils 51.7 % (42.0-75.0); Hematocrit 41.2 % (36.0-47.0); Hemoglobin 13.6 g/dL (12.0-16.0); Mean Corpuscular Hemoglobin 30.6 pg (27.0-31.0); Mean Corpuscular Volume 92.6 fL (78.0-98.0); Mean Platelet Volume 12.2 fL (7.4-10.4); Platelet Count 282 10x3/uL (130-400); RBC Distribution Width 13.1 % (11.5-14.5); Red Blood Cell (RBC) Count 4.45 mill/uL (4.20-5.40)
[2024-06-17 04:52] LABS: ALT (SGPT) 19 U/L (8-55); AST (SGOT) 18 U/L (5-34); Albumin 3.6 g/dL (3.4-4.8); Alkaline Phosphatase 156 U/L (40-110); Anion Gap 14 mmol/L (10-20); BUN (Urea Nitrogen) 9 mg/dL (9.8-20.1); Bilirubin, Total 0.6 mg/dL (0.2-1.2); Calc. Creatinine Clearance 0 mL/min (70-130); Calcium 8.7 mg/dL (7.8-10.44); Carbon Dioxide 25 mmol/L (23-31); Chloride 109 mmol/L (98-107); Estimated GFR 86; Globulin 2.9 g/dL (2.4-3.5); Glucose 114 mg/dL (83-110); Protein, Total 6.5 g/dL (5.8-8.1); Sodium 144 mmol/L (136-145)
[2024-06-17 04:56] LABS: Troponin I Less than 0.010 ng/mL (< 0.028)
[2024-06-17] MEDS ORDERED: Ondansetron PF 4 MG/2 ML Vial ONE ×2 (05:17→07:26)
[2024-06-17] MEDS ORDERED: Acetaminophen 500 MG TAB ONE (05:17)
[2024-06-17] MEDS ORDERED: Meclizine HCl 25 MG TAB ONE (08:02)
[2024-06-17 08:08] LABS: Bacteria/HPF 1+ HPF (None Seen); Bilirubin Negative (Negative); Blood, Urine Negative (Negative); CAUTI Indications for Culture Alt mental st,lethar; Clarity Clear (Clear); Glucose, Urine (Dipstick) Normal (Negative); Ketone, Urine Negative (Negative); Leukocyte Negative Leu/uL (Negative); Nitrite Negative (Negative); Protein, Urine (Dipstick) 20 mg/dL (Neg-Trace); RBC/HPF None Seen HPF (0-3); Specific Gravity, Urine 1.005 (1.002-1.036); Squamous Epithelial 0-3 HPF (0-3); Urobilinogen Normal mg/dL (Less than 2); WBC/HPF 0-3 HPF (0-3)
[2024-06-17 08:09] LABS: Urine Culture Reflex No No
[2024-06-17 08:22] LABS: Magnesium 2.3 mg/dL (1.6-2.6); PTT 29.4 sec (22.9-36.1); Prothrombin Time 13.3 sec (12.0-14.7)
[2024-06-17] MEDS ORDERED: Iopamidol-370 76% 500 ML MDV (1 ML CHARGE) ONE (10:18)
[2024-06-17] MEDS ORDERED: Ondansetron ODT 4 MG TAB PO PRN (11:34)
[2024-06-17] MEDS ORDERED: Acetaminophen 325 MG TAB PO PRN (11:34)
[2024-06-17 11:54] VITALS: BMI 23.8
[2024-06-17] MEDS ORDERED: Nicotine 14 MG PATCH ONE (11:57)
[2024-06-17] MEDS: Nicotine 14 MG PATCH TD SCH (12:00)
[2024-06-17] MEDS: Famotidine 20 MG TAB PO SCH (20:18)
[2024-06-17] MEDS: Aspirin 81 mg Enteric Coated Tablet PO SCH (20:18)
[2024-06-18 04:12] LABS: #Basophils 0.06 10x3/uL (0.0-0.2); %Basophils 0.6 % (0.0-1.0); %Eosinophils 4.4 % (0.0-10.0); %Lymphocytes 39.8 % (21.0-51.0); %Monocytes 6.7 % (0.0-10.0); %Neutrophils 48.3 % (42.0-75.0); Hematocrit 37.8 % (36.0-47.0); Hemoglobin 12.2 g/dL (12.0-16.0); Mean Corpuscular HGB CONC 32.3 g/dL (32.0-36.0); Mean Corpuscular Hemoglobin 29.5 pg (27.0-31.0); Mean Corpuscular Volume 91.3 fL (78.0-98.0); Mean Platelet Volume 12.6 fL (7.4-10.4); Platelet Count 253 10x3/uL (130-400); RBC Distribution Width 13.2 % (11.5-14.5); Red Blood Cell (RBC) Count 4.14 mill/uL (4.20-5.40)
[2024-06-18 05:00] LABS: Anion Gap 12 mmol/L (10-20); BUN (Urea Nitrogen) 10 mg/dL (9.8-20.1); Calc. Creatinine Clearance 54 mL/min (70-130); Calcium 8.3 mg/dL (7.8-10.44); Carbon Dioxide 25 mmol/L (23-31); Chloride 110 mmol/L (98-107); Estimated GFR 78; Glucose 101 mg/dL (83-110); Potassium 4.1 mmol/L (3.5-5.1); Sodium 143 mmol/L (136-145)
[2024-06-18] MEDS: Levothyroxine Sodium 100 MCG TAB PO SCH (06:14)
[2024-06-18] MEDS: Amlodipine 10 MG TAB PO SCH (10:17)
[2024-06-18] MEDS: Clopidogrel Bisulfate 75 MG TAB PO SCH (10:19)
[2024-06-18] MEDS: Enoxaparin 40 MG (0.4 mL) SYRINGE SC SCH (10:20)
[2024-06-18] MEDS: Atorvastatin Calcium 40 MG TAB PO SCH (10:28)
[2024-06-18 16:22] VITALS: BP 143/61; TEMP 98.4
[2024-06-20] MEDS ORDERED: FLU (Fluad Triv) TS24-25 (65UP)/MF59C/PF 45 MCG/0.5 ML Syringe IM ONE (16:30)
== END 2024-06-18 16:15 | disposition home or self-care (01) | DRG 68 ==
LOC: ERS 03:18 → ERHOLD 09:57 → 2SE 15:58
PROVIDERS: ADMIT Hospitalist; ATTEND Internal Medicine
DX: I65.22 Occlusion and stenosis of left carotid artery (principal); J44.9 Chronic obstructive pulmonary disease, unspecified; I10 Essential (primary) hypertension; E78.5 Hyperlipidemia, unspecified; E03.9 Hypothyroidism, unspecified; F17.210 Nicotine dependence, cigarettes, uncomplicated; R26.81 Unsteadiness on feet; Z90.710 Acquired absence of both cervix and uterus
CPT/HCPCS: 36415; 70450; 70496; 70498; 72125; 80048; 80053; 81001; 83735; 84484; 85025; 85610; 85730; 93005; 93010; J1650; J2405; Q9967

== ENCOUNTER 2024-07-31 10:30 | Inpatient (IN) | payer OTHER, MEDICAID ==
[2024-07-31 10:54] VITALS: BMI 19.0
[2024-08-03] MEDS ORDERED: Bupivacaine PF 0.5% 30 ML VIAL ONE (11:06)
[2024-08-03] MEDS ORDERED: Heparin 5,000 UNITS/ML VIAL ONE (11:06)
[2024-08-03] MEDS ORDERED: EPINEPHrine 1 MG/ML VIAL ONE (11:06)
[2024-08-03] MEDS ORDERED: CEFAZOLIN 2 GM VIAL ONE (11:17)
[2024-08-03] MEDS ORDERED: Lidocaine 1% MPF 2 ML VIAL ONE ×2 (11:17→12:01)
[2024-08-03] MEDS ORDERED: PROPOFOL 20 ML ONE (11:32)
[2024-08-03] MEDS ORDERED: Rocuronium Bromide 10 MG/ML (10ML VIAL) ONE (11:32)
[2024-08-03] MEDS ORDERED: fentaNYL PF 100 MCG/2 ML SYRINGE ONE (11:32)
[2024-08-03] MEDS ORDERED: Lidocaine 1% PF 5 ML VIAL ONE (12:24)
[2024-08-03] MEDS ORDERED: Dexamethasone 20 MG/5 ML VIAL ONE (12:41)
[2024-08-03] MEDS ORDERED: Ondansetron PF 4 MG/2 ML Vial ONE (12:41)
[2024-08-03] MEDS ORDERED: Glycopyrrolate 0.2 MG/ML 5 ML SYRINGE ONE (12:58)
[2024-08-03] MEDS ORDERED: ePHEDrine Sulfate 50 MG/10 ML VIAL ONE (12:59)
[2024-08-03] MEDS ORDERED: fentaNYL 50 mcg/mL 1 mL Vial ONE ×3 (13:06→15:41)
[2024-08-03] MEDS ORDERED: Protamine Sulfate 50 MG/5 ML VIAL ONE (13:13)
[2024-08-03] MEDS ORDERED: SUGAMMADEX SODIUM 200 MG/2 ML VIAL ONE (13:28)
[2024-08-03] MEDS ORDERED: hydrALAZINE 20 MG/ML VIAL SLOW IVP PRN (13:34)
[2024-08-03] MEDS ORDERED: Phenylephrine 40 MG/NS 250 ML 250 ML IVPB PRN (13:34)
[2024-08-03] MEDS ORDERED: Nitroglycerin 50 MG/250 ML BOT 250 ML IVPB PRN (13:34)
[2024-08-03] MEDS ORDERED: fentaNYL 50 mcg/mL 1 mL Vial SLOW IVP PRN (13:34)
[2024-08-03] MEDS ORDERED: Ipratropium/Albuterol 3 ML NEB NEB PRN (13:34)
[2024-08-03] MEDS ORDERED: Acetaminophen 325 MG TAB PO PRN ×2 (13:34)
[2024-08-03] MEDS ORDERED: hydrALAZINE 20 MG/ML VIAL ONE (13:54)
[2024-08-03] MEDS ORDERED: Nitroglycerin 50 MG/250 ML BOT 250 ML ONE (13:54)
[2024-08-03] MEDS ORDERED: Ipratropium/Albuterol 3 ML NEB ONE (14:17)
[2024-08-03] MEDS ORDERED: Sodium Chloride For Inhalation 0.9% 3 ML NEB ONE (14:19)
[2024-08-03] MEDS ORDERED: Racepinephrine 2.25% 0.5 ML NEB ONE (14:19)
[2024-08-03] MEDS: Sodium Chloride 0.9% 1,000 ML IV SCH (17:35)
[2024-08-03] MEDS: Benzonatate 100 MG CAP PO SCH ×2 (18:00→21:26)
[2024-08-03] MEDS: traMADol HCl 50 MG TAB PO PRN (18:04)
[2024-08-03] MEDS: guaiFENesin/Codeine 200 mg/20 mg 10 ml Cup PO PRN (18:04)
[2024-08-03] MEDS: Ipratropium/Albuterol 3 ML NEB NEB SCH (18:46)
[2024-08-03] MEDS: CEFAZOLIN 2 GM in Sodium Chloride 0.9% 100 ML IVPB SCH (20:19)
[2024-08-03] MEDS: Ondansetron PF 4 MG/2 ML Vial IVP PRN (21:28)
[2024-08-04] MEDS: Levothyroxine Sodium 100 MCG TAB PO SCH (05:30)
[2024-08-04 08:04] VITALS: TEMP 98.6
[2024-08-04] MEDS: Atorvastatin Calcium 40 MG TAB PO SCH (08:25)
[2024-08-04] MEDS: Aspirin 81 mg Enteric Coated Tablet PO SCH (08:25)
[2024-08-04] MEDS: Amlodipine 10 MG TAB PO SCH (08:25)
[2024-08-04] MEDS: Clopidogrel Bisulfate 75 MG TAB PO SCH (08:30)
[2024-08-04 08:31] VITALS: BP 160/62
== END 2024-08-04 08:50 | disposition home or self-care (01) | DRG 39 ==
LOC: SURG A 08-03 10:00 → CCU 08-03 17:07
PROVIDERS: ADMIT Thoracic Surgery (Cardiothoracic Vascular Surgery); ATTEND Thoracic Surgery (Cardiothoracic Vascular Surgery)
PROC: 03CL0ZZ Extirpation of Matter from Left Internal Carotid Artery, Open Approach (ICD-10-PCS; principal; 2024-08-03)
PROC: 03CN0ZZ Extirpation of Matter from Left External Carotid Artery, Open Approach (ICD-10-PCS; 2024-08-03)
PROC: 03UN0KZ Supplement Left External Carotid Artery with Nonautologous Tissue Substitute, Open Approach (ICD-10-PCS; 2024-08-03)
DX: I65.22 Occlusion and stenosis of left carotid artery (principal); I10 Essential (primary) hypertension; E78.5 Hyperlipidemia, unspecified; E03.9 Hypothyroidism, unspecified; J44.9 Chronic obstructive pulmonary disease, unspecified; F17.210 Nicotine dependence, cigarettes, uncomplicated; Z79.899 Other long term (current) drug therapy
CPT/HCPCS: 94640; C1768; J0171; J0360; J0665; J1100; J1642; J1644; J2405; J2704; J2720; J3010; J7030; J7620

== ENCOUNTER 2024-07-31 10:32 | Outpatient (CLI) | payer OTHER ==
[2024-07-31 11:35] LABS: #Basophils 0.03 10x3/uL (0.0-0.2); #Eosinophils Less than 0.03 10x3/uL (0.0-0.7); %Basophils 0.3 % (0.0-1.0); %Eosinophils 0.2 % (0.0-10.0); %Lymphocytes 10.9 % (21.0-51.0); %Monocytes 1.2 % (0.0-10.0); Hematocrit 39.7 % (36.0-47.0); Hemoglobin 13.3 g/dL (12.0-16.0); Mean Corpuscular HGB CONC 33.5 g/dL (32.0-36.0); Mean Corpuscular Hemoglobin 30.4 pg (27.0-31.0); Mean Corpuscular Volume 90.6 fL (78.0-98.0); Mean Platelet Volume 12.1 fL (7.4-10.4); Platelet Count 283 10x3/uL (130-400); RBC Distribution Width 14.2 % (11.5-14.5); Red Blood Cell (RBC) Count 4.38 mill/uL (4.20-5.40)
[2024-07-31 12:23] LABS: Anion Gap 15 mmol/L (10-20); BUN (Urea Nitrogen) 5 mg/dL (9.8-20.1); Calc. Creatinine Clearance 0 mL/min (70-130); Calcium 8.8 mg/dL (7.8-10.44); Carbon Dioxide 24 mmol/L (23-31); Chloride 107 mmol/L (98-107); Estimated GFR 83; Glucose 150 mg/dL (83-110); Potassium 3.9 mmol/L (3.5-5.1); Sodium 142 mmol/L (136-145)
== END 2024-07-31 10:33 | disposition home or self-care (01) ==
LOC: LABBT 10:32
PROVIDERS: ATTEND Thoracic Surgery (Cardiothoracic Vascular Surgery)
DX: Z01.812 Encounter for preprocedural laboratory examination (principal); I65.22 Occlusion and stenosis of left carotid artery
CPT/HCPCS: 80048; 85025; 93005; 93010

== ENCOUNTER 2025-05-17 09:03 | Outpatient (CLI) | payer MEDICARE, OTHER | END 2025-05-17 09:04 | disposition home or self-care (01) | LOC: BICMAMMO 09:03 | PROVIDERS: ATTEND Nurse Practitioner Family | DX: M81.0 Age-related osteoporosis without current pathological fracture (principal) | CPT/HCPCS: 77080 ==